=== PATIENT | female | born 1985 | race Caucasian/White ===

== ENCOUNTER 2020-09-26 21:12 | Emergency (ER) | payer OTHER ==
[2020-09-26 22:32] LABS: HEMOGLOBIN 15.1 gm/dl (12.3-15.3); RED BLOOD COUNT 4.79 M/UL (4.00-5.10); WHITE BLOOD COUNT 12.3 K/UL (4.5-11.0)
[2020-09-26 22:45] LABS: BUN/CREATININE RATIO 19 (0-10)
[2020-09-27] MEDS ORDERED: BACTRIM DS TAB1 EACH PO (02:42)
== END 2020-09-27 03:03 | disposition left against medical advice (07) ==
LOC: ER1 21:12
PROVIDERS: Physician Assistant
DX: R50.9 Fever, unspecified (principal); L53.9 Erythematous condition, unspecified
CPT/HCPCS: 71045; 73201; 80053; 81001; 83605; 83735; 83880; 84100; 85025; 85610; 85652; 85730; 86140; 87040; 87070; 87077; 87086; 87186; 87205; 93005; 96365; 96366; 96375; 99284; J2060; J2270; J2405; J3370; J7030; Q9967

== ENCOUNTER 2021-07-26 11:25 | Emergency (ER) | payer OTHER ==
[~2021-07-26 11:25] MED LIST: BACTRIM DS TAB1 EACH PO
[2021-07-26 13:39] LABS: HEMOGLOBIN 15.9 gm/dl (12.3-15.3); RED BLOOD COUNT 5.24 M/UL (4.00-5.10); WHITE BLOOD COUNT 10.7 K/UL (4.5-11.0)
[2021-07-26 14:03] LABS: BUN/CREATININE RATIO 28 (0-10)
== END 2021-07-26 23:25 | disposition short-term general hospital (02) ==
LOC: ER1 11:25
PROVIDERS: Physician Assistant
DX: M54.41 Lumbago with sciatica, right side (principal); G89.29 Other chronic pain; F17.200 Nicotine dependence, unspecified, uncomplicated; R20.2 Paresthesia of skin; Z79.899 Other long term (current) drug therapy
CPT/HCPCS: 80053; 81001; 84703; 85025; 85652; 86140; 87086; 96374; 96375; 96376; 99284; J1100; J1885; J2270; J2405